=== PATIENT | female | born 1985 | race African-American/Black ===

== ENCOUNTER 2020-03-19 12:45 | Emergency (ER) | payer SELFPAY ==
[~2020-03-19] VITALS: Ht 165.1 cm; Wt 127.0 kg
[2020-03-19] MEDS ORDERED: CLINDAMYCIN HC150 MG (13:32)
[2020-03-19] MEDS ORDERED: NO HOME MEDICATIONS (13:33)
--- NOTE | 2020-03-19 13:41 | Emergency Department Note ---
History of Present Illnes History of Present Illness Chief Complaint: General Medicine Complaints History of Present Illness This is a 34 year old female PATIENT IN FROM HOME WITH COMPLAINTS OF LEFT LOWER DENTAL/GUM PAIN SINCE FRIDAY; STATES HAS BEEN UNABLE TO GET IN TO SEE ANYONE. PATIENT APPEARS IN NO DISTRESS, RESP EVEN AND NONLABORED, AMBULATORY WITHOUT ASSISTANCE, RATES PAIN 03/24. Historian: Patient Arrival Mode: Car Transportation Director Required: No Onset (how long ago): day(s) (5) Location: LEFT LOWER BACK TEETH Quality: PAIN Radiation: Reports non-radiation Severity: severe Onset quality: gradual Timing of current episode: constant Chronicity: new Context: Denies recent illness Relieving factors: none Exacerbating factors: none Associated symptoms: Reports denies other symptoms Treatments prior to arrival: none Past Medical/Family History Physician Review I have reviewed the patient's past medical and family history. Any updates have been documented here. Past Medical History Recent Fever: No Clinical Suspicion of Infectio: Yes New/Unexplained Change in Ment: No Past Medical History: None Past Surgical History: Social History Smoking Cessation: Never Smoker Counseling Performed: No Alcohol Use: Social Any Illegal Drug Use: No TB Exposure/Symptoms: No Physically hurt or threatened: No Family History Family history of heart diseas: No Other Any Pre-Existing Lines (PICC,: No Review of Systems Review of Systems Constitutional: Reports no symptoms EENTM: Reports as per HPI Cardiovascular: Reports no symptoms Respiratory: Reports no symptoms Gastrointestinal: Reports no symptoms Genitourinary: Reports no symptoms Musculoskeletal: Reports no symptoms Integumentary: Reports no symptoms Neurological: Reports no symptoms Psychological: Reports no symptoms Endocrine: Reports no symptoms Hematological/Lymphatic: Reports no symptoms Physical Exam Related Data Allergies: Coded Allergies: No Known Allergies (Unverified , 03/19/20) Triage Vital Signs Vital Signs Date Time Temp Pulse Resp B/P (MAP) Pulse Ox O2 Delivery O2 Flow Rate FiO2 03/19/20 12:51 97.0 88 18 152/106 100 Room Air Vital signs reviewed: Yes Physical Exam CONSTITUTIONAL Constitutional: Present well-developed, Present well-nourished HENT HENT: Present dental caries (WIDESPREAD DECAY), Present other (TEETH #[id number] ERODED TO GUMLINE WITH MILD PURULENT DISCHARGE, NO DISCRETE ABSCESS TO I&D, MILD SWELLING TO LEFT MANDIBLE AREA) HENT L/R: Present left ext ear normal, Present right ext ear normal EYES Eyes: Reports PERRL, Reports conjunctivae normal NECK Neck: Present ROM normal PULMONARY Pulmonary: Present effort normal, Present breath sounds normal CARDIOVASCULAR Cardiovascular: Present regular rhythm, Present heart sounds normal, Present capillary refill normal, Present normal rate GASTROINTESTINAL Abdominal: Present soft, Present nontender, Present bowel sounds normal GENITOURINARY Genitourinary: Present exam deferred SKIN Skin: Present warm, Present dry MUSCULOSKELETAL Musculoskeletal: Present ROM normal NEUROLOGICAL Neurological: Present alert, Present oriented x 3, Present no gross motor or sensory deficits PSYCHOLOGICAL Psychological: Present mood/affect normal, Present judgement normal Assessment & Plan Medical Decision Making [facility] DC WITH ABX'S Reassessment Reassessment DC HOME, CLINDA 300 QID X 10 D, F/U PCP AND DENTIST FRIDAY, OTC IBUPROFEN UD, TYL #3 UD (#15) Assessment & Plan Final Impression: (1) Tooth pain (2) Dental caries Depart Disposition: HOME, SELF-CARE Last Vital Signs Date Time Temp Pulse Resp B/P (MAP) Pulse Ox O2 Delivery O2 Flow Rate FiO2 03/19/20 12:51 97.0 88 18 152/106 100 Room Air Home Meds Reported Medications [No Home Medications] No Conflict Check 03/19/20 Discontinued Reported Medications Clindamycin Hcl (CLINDAMYCIN HCL) 150 Mg Capsule 03/19/20 JASMYNE HANNAH MD Mar 19, 2020 13:41
== END 2020-03-19 13:35 | disposition home or self-care (01) ==
LOC: ER 13:35
DX: K08.89 Other specified disorders of teeth and supporting structures (principal); K02.9 Dental caries, unspecified
CPT/HCPCS: 99283

== ENCOUNTER → 2021-05-03 | Emergency (ER) | payer SELFPAY ==
[~2021-05-03] VITALS: Ht 165.1 cm; Wt 117.9 kg
[~2021-05-03] MED LIST: CLINDAMYCIN HC150 MG; NO HOME MEDICATIONS
== END | disposition home or self-care (01) ==
LOC: ER 17:53
DX: K08.89 Other specified disorders of teeth and supporting structures (principal); K04.7 Periapical abscess without sinus
CPT/HCPCS: 99283

== ENCOUNTER 2022-07-15 07:13 | Emergency (ER) | payer SELFPAY ==
[~2022-07-15] VITALS: Ht 165.1 cm; Wt 117.9 kg
[2022-07-15] MEDS ORDERED: ULTRAM 50MG50 MG PO (07:31)
[2022-07-15] MEDS ORDERED: AMOXICILLIN500 MG PO (07:56)
== END 2022-07-15 07:56 | disposition home or self-care (01) ==
LOC: ER 07:21
DX: K08.89 Other specified disorders of teeth and supporting structures (principal); K02.9 Dental caries, unspecified
CPT/HCPCS: 99281